=== PATIENT | male | born 1970 | race Caucasian/White ===

== ENCOUNTER 2020-08-02 18:53 | Emergency (ER) | payer MEDICAID ==
[2020-08-02] MEDS ORDERED: Lidocaine 1% with EPINEPHrine 1:100,000 10 ML MDV INJECT ONE (19:31)
[2020-08-02] MEDS ORDERED: Diphtheria,Pertussis(Acell),Tetanus Vaccine 0.5 ML Syringe IM ONE (19:31)
--- NOTE | 2020-08-02 19:35 | EDM.PDOC ---
ED HPI GENERAL MEDICAL PROBLEM - General Chief Complaint: Lower Extremity Injury/Pain Stated Complaint: LEFT LEG SCRAPPED UP GOING UP A LADDER Time Seen by Provider: 08/02/20 19:25 Source of Information: Reports: Patient, RN Notes Reviewed History Limitations: Reports: No Limitations - History of Present Illness INITIAL COMMENTS - FREE TEXT/NARRATIVE: Patient is a 50-year-old male who presents to the ER for evaluation of a left leg laceration. Notes that he was going up a stepladder, when he ended up scraping his lama against the step when he was going up the stepladder. This resulted in a 7 cm C-shaped laceration to his anterior portion of his left distal lama, bleeding is under control at this time. He is not sure of his last tetanus booster. States it is not too painful at this time. Patient denies any other sick-like symptoms, fever/chills, cough/shortness of breath, nausea/vomiting/diarrhea. He does state that he has a history of lymphedema. Left Lower Leg Pain Score (Numeric/FACES): 5 - Related Data Allergies Allergy/AdvReac Type Severity Reaction Status Date / Time metals Allergy Cannot Uncoded 08/02/20 19:13 Remember Home Meds: Home Meds cephALEXin [Cephalexin] 500 mg PO TID 7 Days #21 capsule 08/02/20 [Rx] Past Medical History Musculoskeletal History: Reports: Back Pain, Chronic - Past Surgical History Musculoskeletal Surgical History: Reports: Knee Replacement, Other (See Below) Other Musculoskeletal Surgeries/Procedures:: right wrist surgery, back surgery Social & Family History - Tobacco Use Tobacco Use Status *Q: Current Every Day Tobacco User Years of Tobacco use: 30 Packs/Tins Daily: 1 - Recreational Drug Use Recreational Drug Use: No Review of Systems - Review of Systems Review Of Systems: Comprehensive ROS is negative, except as noted in HPI. ED EXAM, GENERAL - Physical Exam Exam: See Below Exam Limited By: No Limitations General Appearance: Alert, WD/WN, No Apparent Distress Respiratory/Chest: No Respiratory Distress, Lungs Clear, Normal Breath Sounds, No Accessory Muscle Use, Chest Non-Tender Cardiovascular: Normal Peripheral Pulses, Regular Rate, Rhythm, No Edema Peripheral Pulses: 2+: Dorsalis Pedis (L), Dorsalis Pedis (R) Extremities: Normal Range of Motion, Normal Capillary Refill Neurological: Alert, Oriented, Normal Cognition, No Motor/Sensory Deficits Psychiatric: Normal Affect, Normal Mood Skin Exam: Warm, Dry, Normal Color, No Rash, Wound/Incision (7cm C-shaped laceration to the distal L anterior lama) ED TRAUMA EXTREMITY PROCEDURES - Laceration/Wound Repair Left Anterior Distal Leg Lac/Wound Length In cm: 7 Appearance: Subcutaneous, Irregular (C-shaped), Clean Distal NVT: Neuro & Vascular Intact, No Tendon Injury Anesthetic Type: Local Local Anesthesia - Lidocaine (Xylocaine): 1% with EPI Local Anesthetic Volume: Other (6cc) Skin Prep: Chlorhexidine (Hibiciens), Saline Exploration/Debridement/Repair: Wound Explored, In a Bloodless Field, Explored to Base, No Foreign Material Found Closed With: Sutures Suture Size: 3-0 # of Sutures: 16 Suture Type: Prolene, Interrupted, Simple Sterile Dressing Applied: Nurse Tetanus Status Addressed: Yes Complications: No Course - Vital Signs Last Recorded V/S: Last Vital Signs Temp 98.4 F 08/02/20 19:16 Pulse 84 08/02/20 19:16 Resp 16 08/02/20 19:16 BP 149/75 H 08/02/20 19:16 Pulse Ox 98 08/02/20 19:16 - Orders/Labs/Meds Orders: Active Orders 24 hr Category Date Time Status Vaccines to be Administered [RC] PER UNIT ROUTINE Care 08/02/20 19:31 Ordered Meds: Medications Discontinued Medications Generic Name Dose Route Start Last Admin Trade Name Freq PRN Reason Stop Dose Admin Diphtheria/Tetanus/Acell Pertussis 0.5 ml 08/02/20 19:31 08/02/20 19:42 Diphtheria,Pertussis(Acell),Tetanus Vaccine 0.5 Ml Syringe IM 08/02/20 19:32 0.5 ml .ONCE ONE Administration Lidocaine/Epinephrine 10 ml 08/02/20 19:31 08/02/20 19:41 Lidocaine 1% With Epinephrine 1:100,000 10 Ml Mdv INJECT 08/02/20 19:32 10 ml ONETIME ONE Administration Departure - Departure Time of Disposition: 19:35 Disposition: Home, Self-Care 01 Condition: Good Clinical Impression: Laceration of left leg Qualifiers: Encounter type: initial encounter Qualified Code(s): S81.812A - Laceration without foreign body, left lower leg, initial encounter - Discharge Information *PRESCRIPTION DRUG MONITORING PROGRAM REVIEWED*: No *COPY OF PRESCRIPTION DRUG MONITORING REPORT IN PATIENT SOLEDAD: No Instructions: Laceration Care, Adult, [id number] Referrals: PCP,Not In Area [Primary Care Provider] - Forms: ED Department Discharge Additional Instructions: You have been evaluated in the ED for your laceration. Sutures will need to stay in for14 days. You may return to the ED or any clinic for removal. Please keep this area clean and dry, you may cleanse with regular soap and water. No vigorous scrubbing. Please try to avoid submerging the affected area in water for prolonged periods of time until the sutures are removed. You were started on antibiotic called cephalexin, dosing will be 1 tablet 3 times a day for the next 7 days, due to the area of the leg in which your wound is located. Please keep an eye on this area, if you should notice any worsening swelling/redness, or any drainage from the wound site you should seek care for immediate management for change in antibiotics and/or needing IV antibiotics. Y our prescription was electronically prescribed to the [facility] located in [facility] per your choice, if they are open tomorrow, you may obtain these and start taking as directed, otherwise you can start on Tuesday. Please return to ED if your symptoms change or worsen. Sepsis Event Note (ED) - Evaluation Sepsis Screening Result: No Definite Risk - Focused Exam Vital Signs: Vital Signs Temp Pulse Resp BP Pulse Ox 08/02/20 19:16 98.4 F 84 16 149/75 H 98 - My Orders Last 24 Hours: My Active Orders 08/02/20 19:31 Vaccines to be Administered [RC] PER UNIT ROUTINE - Assessment/Plan Last 24 Hours: My Active Orders 08/02/20 19:31 Vaccines to be Administered [RC] PER UNIT ROUTINE
== END 2020-08-02 20:57 | disposition home or self-care (01) ==
LOC: JD.ED 18:53
DX: S81.812A Laceration without foreign body, left lower leg, initial encounter (principal); Z72.0 Tobacco use; Z91.048 Other nonmedicinal substance allergy status; Z23 Encounter for immunization; W11.XXXA Fall on and from ladder, initial encounter
CPT/HCPCS: 12002; 90471; 90715; 99282-25; 99283

== ENCOUNTER 2020-09-05 00:02 | Emergency (ER) | payer MEDICAID ==
--- NOTE | 2020-09-05 00:38 | EDM.PDOC ---
ED HPI GENERAL MEDICAL PROBLEM - General Chief Complaint: Lower Extremity Injury/Pain Stated Complaint: BLEEDING ON RIGHT LEG Time Seen by Provider: 09/05/20 00:12 Source of Information: Reports: Patient History Limitations: Reports: No Limitations - History of Present Illness INITIAL COMMENTS - FREE TEXT/NARRATIVE: Mr. Ahuja is a very pleasant 50-year-old gentleman who now presents the ED with a laceration to his anterior right leg that he sustained around 23:00 this evening, after he struck a footstool. He is otherwise uninjured. Here in the ED, the patient's initial BP is found to be moderately elevated at 159/96, with tachycardia of 110 bpm. He is afebrile, saturating 93% on room air. He appears to be comfortable, in no acute distress. Medical records indicate that the patient suffered a similar laceration to his anterior left leg on 08/02/2020. At that time, he received 16 sutures to the wound, and was prescribed Keflex. He states that the wound subsequently became infected, therefore he was prescribed a 10-day course of Omnicef last week, which he started this past 09/02/2020. Otherwise, the patient denies having a recent fever, chills, sore throat, ear pain, nasal or sinus congestion, cough, dyspnea, chest pain, palpitations, nausea, vomiting, constipation, diarrhea, abdominal pain, urinary symptoms, recent weight gain or weight loss, recent bloody bowel movements or black bowel movements, recent joint aches, headaches, or rashes. The patient's PCP is Dr. Marina Peñaloza, at [facility]. His pain client customer manager is Sue Madrid NP. Treatments CHERRY GROWER: Reports: Dressing(s) Right Middle Leg Pain Score (Numeric/FACES): 4 - Related Data Allergies Allergy/AdvReac Type Severity Reaction Status Date / Time metals Allergy Cannot Uncoded 09/05/20 00:17 Remember Home Meds: Home Meds Cefdinir [Omnicef] 300 mg PO DAILY 09/05/20 [History] Past Medical History Musculoskeletal History: Reports: Other (See Below) (BLE lymphedema) Endocrine/Metabolic History: Reports: Obesity/BMI 30+ - Infectious Disease History Infectious Disease History: Reports: Chicken Pox - Past Surgical History Neurological Surgical History: Reports: Lumbar Spine (Laminectomy) Musculoskeletal Surgical History: Reports: Arthroscopic Knee (right), Carpal Juan Pablo jose alberto (right) Social & Family History - Tobacco Use Tobacco Use Status *Q: Current Every Day Tobacco User Years of Tobacco use: 35 Packs/Tins Daily: 1 Tobacco Use Comment: Started smoking at 15 yrs old Second Hand Smoke Exposure: No - Caffeine Use Caffeine Use: Reports: Coffee - Alcohol Use Alcohol Use History: Yes Alcohol Use Frequency: Socially - Recreational Drug Use Recreational Drug Use: Yes Drug Use in Last 12 Months: Yes Recreational Drug Type: Reports: Marijuana/Hashish (smokes daily) - Living Situation & Occupation Living situation: Reports: Single, Alone Occupation: Unemployed Review of Systems - Review of Systems Review Of Systems: Comprehensive ROS is negative, except as noted in HPI. ED EXAM, GENERAL - Physical Exam Exam: See Below Exam Limited By: No Limitations General Appearance: Alert, WD/WN, No Apparent Distress Extremities: Other (There is a 7 cm stellate laceration to the anterior right leg over the mid-tibia. No associated swelling or ecchymosis. Minimal bleeding at this time.) ED TRAUMA EXTREMITY PROCEDURES - Laceration/Wound Repair Right Leg Lac/Wound Length In cm: 7 Appearance: Subcutaneous, Stellate, Clean Distal NVT: Neuro & Vascular Intact, No Tendon Injury Skin Prep: Chlorhexidine (Hibiciens), Saline Exploration/Debridement/Repair: Wound Explored, In a Bloodless Field, Explored to Base, No Foreign Material Found Closed With: Victoria # of Sutures: 15 Drain Placement: No Sterile Dressing Applied: Nurse Tetanus Status Addressed: Yes Complications: No Course - Vital Signs Last Recorded V/S: Last Vital Signs Temp 36.1 C 09/05/20 00:11 Pulse 111 H 09/05/20 00:11 Resp 20 09/05/20 00:11 BP 159/96 H 09/05/20 00:11 Pulse Ox 93 L 09/05/20 00:11 - Re-Assessments/Exams Free Text/Narrative Re-Assessment/Exam: 09/05/20 00:32 As above, the patient struck his right anterior lama on a footstool around 23:00 this evening, sustaining a stellate laceration to the skin overlying the mid- tibia. He is otherwise uninjured. The wound was cleaned per his nurse. I then stapled the wound with 15 clay, to good effect. Pain medication was offered, but declined. The patient tolerated the procedure well. The wound will be dressed per his RN. The patient is currently on Omnicef for an infection to his left lama, therefore no additional antibiotics are needed, however, even if the patient were not on antibiotics, provided he keeps it clean, it should not become infected. The clay should be ready for removal in about 10 days. Departure - Departure Time of Disposition: 00:34 Disposition: Home, Self-Care 01 Condition: Good Clinical Impression: Laceration of right lower leg - Discharge Information *PRESCRIPTION DRUG MONITORING PROGRAM REVIEWED*: Not Applicable *COPY OF PRESCRIPTION DRUG MONITORING REPORT IN PATIENT SOLEDAD: Not Applicable Instructions: Laceration Care, Adult, [id number] Referrals: Sue Madrid PA [Ordering Only Provider] - Forms: ED Department Discharge Additional Instructions: You were seen in the emergency room after striking your right lama on a footstool, sustaining a laceration. Your wound was closed with 15 clay in the ER. Keep the wound clean with ordinary soap and water when you bathe. Pat dry, then apply a clean, fresh bandage, daily. If the wound should become dirty, remove the bandage, clean the wound, pat it dry, and reapply a fresh clean bandage. You may take [id number] Tylenol or ibuprofen as needed for discomfort. Provided you keep the wound clean, it should not become infected, however, if there are any concerns of infection, such as swelling, redness, drainage, or inordinate pain, please see your PCP, or return to the ER for reevaluation. The clay should be ready for removal by 09/15/2020. They can be removed at the walk-in clinic, by a nurse at your doctor's office, or in the ER. Do not try to remove them yourself; they require a special tool. If any other problems, please do not hesitate to return to the ER. Sepsis Event Note (ED) - Evaluation Sepsis Screening Result: No Definite Risk - Focused Exam Vital Signs: Vital Signs Temp Pulse Resp BP Pulse Ox 09/05/20 00:11 36.1 C 111 H 20 159/96 H 93 L
== END 2020-09-05 00:43 | disposition home or self-care (01) ==
LOC: JD.ED 00:02
DX: S81.811A Laceration without foreign body, right lower leg, initial encounter (principal); E66.9 Obesity, unspecified; Z72.0 Tobacco use; Z91.048 Other nonmedicinal substance allergy status; Z68.30 Body mass index [BMI] 30.0-30.9, adult; W26.8XXA Contact with other sharp object(s), not elsewhere classified, initial encounter
CPT/HCPCS: 12002; 99282-25; 99283